=== PATIENT | female | born 1950 | race Caucasian/White ===

== ENCOUNTER 2017-08-14 19:17 | Emergency (ER) | payer BC ==
[~2017-08-14] VITALS: Ht 175.3 cm; Wt 100.0 kg
[~2017-08-14 19:17] MED LIST: AUGMENTIN 875-11 TAB PO; BABY ASPIRIN81 MG PO; NIASPAN; NIASPAN500 MG PO; NORCO 5/325 TAB1 TAB PO; SYNTHROID25 MCG PO; Synthroid; ZIAC
[2017-08-14] MEDS ORDERED: SYNTHROID88 MC1 PO (22:43)
[2017-08-14] MEDS ORDERED: ZIAC 2.5-6.251 EACH PO (22:44)
[2017-08-14] MEDS ORDERED: NIASPAN500 M1 PO (22:45)
[2017-08-14] MEDS ORDERED: NUCYNTA50 M1 PO (23:17)
[2017-08-14] MEDS ORDERED: ZOFRAN4 M2 PO (23:17)
== END 2017-08-14 23:25 ==
LOC: EDMED 19:17
DX: M19.012 Primary osteoarthritis, left shoulder (principal); I10 Essential (primary) hypertension; E78.5 Hyperlipidemia, unspecified; E03.9 Hypothyroidism, unspecified; Z88.6 Allergy status to analgesic agent; Z79.82 Long term (current) use of aspirin; Z79.899 Other long term (current) drug therapy